=== PATIENT | male | born 1965 | race Asian ===

== ENCOUNTER 2018-10-24 02:36 | Emergency (ER) | payer OTHER ==
[~2018-10-24] VITALS: Ht 167.6 cm; Wt 82.3 kg
[2018-10-24] MEDS ORDERED: PANTOPRAZOLE SODIUM 40 MG/VIAL IVP ONE (03:00)
[2018-10-24] MEDS ORDERED: FAMOTIDINE 10 MG/ML 2 ML VIAL IVP ONE (03:00)
[2018-10-24] MEDS ORDERED: MORPHINE SULFATE 4 MG/ML SYRINGE IVP ONE (03:00)
[2018-10-24 03:21] LABS: BASOPHILS % (AUTO) 0.7 % (0.0-2.0); EOSINOPHILS % (AUTO) 2.8 % (1.0-6.0); HEMATOCRIT 49.9 % (41-53); HEMOGLOBIN 17.1 g/dL (13.5-17.5); LYMPHOCYTES # (AUTO) 2.4 K/uL (1.0-4.8); LYMPHOCYTES % (AUTO) 21.7 % (22.0-44.0); MEAN CORPUSCULAR HEMOGLOBIN 31.6 pg (26.0-34.0); MEAN CORPUSCULAR HGB CONC 34.2 G/dL (31.0-37.0); MEAN CORPUSCULAR VOLUME 92 fL (80-100); MONOCYTES # (AUTO) 0.9 K/uL (0.1-1.0); MONOCYTES % (AUTO) 8.7 % (2.0-9.0); NEUTROPHILS # (AUTO) 7.2 K/uL (1.8-7.7); NEUTROPHILS % (AUTO) 66.1 % (40.0-70.0); PLATELET COUNT (AUTO) 230 K/uL (150-450); RED BLOOD CELL COUNT(AUTO) 5.41 MIL/uL (4.50-5.90); RED CELL DISTRIBUTION WIDTH 13.1 % (11.5-14.5)
[2018-10-24 03:32] LABS: INR 0.9 (0.9-1.1); PROTHROMBIN TIME 9.2 SEC (9.4-11.6)
[2018-10-24 03:41] LABS: CALCIUM, TOTAL 9.7 mg/dL (8.8-10.5); CREATININE 1.3 mg/dL (0.60-1.30); POTASSIUM 4.2 mmol/L (3.5-5.1)
[2018-10-24] MEDS ORDERED: IOVERSOL 350 MG/ML 150 ML VIAL ONE (03:42)
[2018-10-24] MEDS ORDERED: SODIUM CHLORIDE 0.9% 100 ML ONE (03:42)
[2018-10-24 04:05] LABS: ALBUMIN 4.1 g/dL (3.4-5.0); BILIRUBIN,TOTAL 0.7 mg/dL (0.1-1.0); TOTAL PROTEIN, SERUM 8.4 g/dL (6.4-8.2)
[2018-10-24] MEDS ORDERED: FentaNYL CITRATE-PF 100 MCG/2 ML VIAL IVP ONE (04:30)
[2018-10-24] MEDS ORDERED: HydrALAZINE HCL 20 MG/ML VIAL IVP ONE (04:30)
[2018-10-24] MEDS ORDERED: PIPERACILLIN SODIUM/TAZOBACTAM 4.5 GM in DEXTROSE 5%-WATER 100 ML IV ONE (05:45)
[2018-10-24] MEDS ORDERED: SODIUM CHLORIDE 0.9% 1,000 ML IV ONE (05:45)
[2018-10-24 06:40] LABS: APPEARANCE,URINE CLEAR (CLEAR); BILIRUBIN,URINE NEGATIVE (NEGATIVE); GLUCOSE, URINE (UA) NEGATIVE (NEGATIVE); KETONES,URINE NEGATIVE (NEGATIVE); LEUKOCYTE ESTERASE ,URINE NEGATIVE (NEGATIVE); NITRATE,URINE NEGATIVE (NEGATIVE); OCCULT BLOOD,URINE NEGATIVE (NEGATIVE); PROTEIN,URINE NEGATIVE (NEGATIVE); UROBILINOGEN,URINE 0.2 mg/dL (<=1.0)
[2018-10-24 06:46] VITALS: BP 143/96
== END 2018-10-24 07:04 | disposition short-term general hospital (02) ==
LOC: EMS 02:36
DX: K80.10 Calculus of gallbladder with chronic cholecystitis without obstruction (principal); I10 Essential (primary) hypertension
CPT/HCPCS: 36415; 71045; 71260; 74177; 80053; 81003; 82550; 83690; 83880; 84484; 85025; 85610; 85730; 93005; 96365; 96375; 99291; C9113; J0360; J2270; J2543; J3010; J3490; J7050; J7060; Q9967; 72193; 74160

== ENCOUNTER 2022-10-28 19:49 | Emergency (ER) | payer OTHER ==
[~2022-10-28] VITALS: Ht 165.1 cm; Wt 69.0 kg
[2022-10-28 23:30] VITALS: BP 146/90
[2022-10-28] MEDS ORDERED: CYCL-448 PO (23:56)
== END 2022-10-29 01:19 | disposition home or self-care (01) ==
LOC: EMS 19:51
DX: S63.501A Unspecified sprain of right wrist, initial encounter (principal); Z90.49 Acquired absence of other specified parts of digestive tract; V99.XXXA Unspecified transport accident, initial encounter; Y93.89 Activity, other specified; Y92.89 Other specified places as the place of occurrence of the external cause; Y99.8 Other external cause status
CPT/HCPCS: 72040; 99284; 73110-TC; Z7502